=== PATIENT | male | born 1985 | race Caucasian/White ===

== ENCOUNTER 2016-05-22 12:39 | Emergency (ER) | payer SELFPAY | END 2016-05-22 15:21 | disposition home or self-care (01) | LOC: D.ER 12:39 | DX: S61.012A Laceration without foreign body of left thumb without damage to nail, initial encounter (principal); W45.8XXA Other foreign body or object entering through skin, initial encounter; Y93.89 Activity, other specified; Y92.019 Unspecified place in single-family (private) house as the place of occurrence of the external cause; F17.200 Nicotine dependence, unspecified, uncomplicated ==

== ENCOUNTER → 2017-12-10 08:33 | Outpatient (CLI) | payer BC | END | disposition home or self-care (01) | LOC: D.MRI 08:33 | DX: M54.6 Pain in thoracic spine (principal) ==

== ENCOUNTER 2018-10-14 07:35 | Emergency (ER) | payer BC, OTHER ==
[~2018-10-14] VITALS: Ht 175.3 cm; Wt 76.4 kg
[2018-10-14 07:38] VITALS: Ht 175.3 cm; Wt 76.4 kg
[2018-10-14] MEDS ORDERED: NAPROSYN500 MG PO (07:40)
[2018-10-14] MEDS ORDERED: LISINOPRIL10 MG PO (07:40)
[2018-10-14 08:15] LABS: BASOPHILS 0.3 % (0-2); EOSINOPHILS 3.1 % (0-7); HEMATOCRIT 39.8 % (42.0-54.0); IMMATURE GRANULOCYTES 0.3 % (0-5); LYMPHOCYTES 21.7 % (15-50); MCHC 35.2 g/dL (31.0-37.0); MCV 91.1 fL (80.0-100.0); MEAN PLATELET VOLUME 9.8 fL (7.4-10.4); MONOCYTES 6.7 % (2-11); NEUTROPHILS 67.9 % (40-80); PLATELET COUNT 256 10x3/uL (130-400); RBC 4.37 10x6/uL (4.20-6.10); RDW 12.9 % (11.5-14.5); WBC 9.3 10x3/uL (4.8-10.8)
[2018-10-14] MEDS ORDERED: HYDROCODONE-A1 UDTA2 PO (08:28)
[2018-10-14 08:33] LABS: ALBUMIN 3.5 g/dL (3.4-5.0); ALKALINE PHOSPHATASE 71 U/L (46-116); ALT (SGPT) 13 U/L (10-68); BILIRUBIN - TOTAL 0.21 mg/dL (0.2-1.3); CALC OSMOLALITY 281 mosm/kg (275-300); CALCIUM 8.7 mg/dL (8.5-10.1); CARBON DIOXIDE 25.9 mmol/L (21.0-32.0); CHLORIDE - SERUM 107 mmol/L (98-107); CREATININE - SERUM 0.9 mg/dL (0.6-1.3); GLUCOSE 96 mg/dL (74-106); POTASSIUM - SERUM 4.2 mmol/L (3.5-5.1); PROTEIN - SERUM 6.6 g/dL (6.4-8.2); SODIUM 142 mmol/L (136-145); UREA NITROGEN 11 mg/dL (7-18); eGFR NON AFRICAN AMERICAN > 90 mL/min (90-120)
[2018-10-14 08:34] LABS: INR 0.98 (0.85-1.17); PROTIME 12.5 SECONDS (11.6-15.0)
[2018-10-14 08:44] LABS: CKMB 0.7 U/L (0.0-3.6); CREATINE KINASE 101 UL (21-232); MAGNESIUM - SERUM 1.9 mg/dL (1.8-2.4); THYROID STIMULATING HORMONE 1.15 uIU/mL (0.36-3.74)
[2018-10-14 08:45] LABS: TROPONIN-I < 0.017 ng/mL (0.000-0.060)
[2018-10-14 09:03] LABS: APTT 30.8 SECONDS (22.8-39.4)
[2018-10-14 10:00] VITALS: BP 116/80
== END 2018-10-14 09:52 | disposition home or self-care (01) ==
LOC: D.ER 07:35
PROVIDERS: Emergency Medicine
DX: R00.1 Bradycardia, unspecified (principal); R42 Dizziness and giddiness; I10 Essential (primary) hypertension; F17.210 Nicotine dependence, cigarettes, uncomplicated

== ENCOUNTER → 2018-10-25 08:52 | Outpatient (CLI) | payer BC, OTHER ==
[2018-10-14 07:38] VITALS: BMI 24.8
[~2018-10-25 08:52] MED LIST: HYDROCODONE-A1 UDTA2 PO; LISINOPRIL10 MG PO; NAPROSYN500 MG PO
--- NOTE | 2018-10-28 08:42 | ST ---
PATIENT:CATIE HENLEY MEDICAL RECORD: [id number] SEX: M LOCATION:[facility] ORDER #: ADMISSION DATE: 10/25/18 AGE OF PATIENT: 32 REFERRING PHYSICIAN: INTERPRETING PHYSICIAN: HARRY ACEVEDO MD DATE OF SERVICE: 10/25/2018 PROCEDURE: Treadmill stress test. Baseline ECG is normal. DESCRIPTION OF PROCEDURE: Exercised for 6 minutes 54 seconds on Yang protocol. Maximum heart rate 110 beats per minute. No ECG changes of ischemia. No symptoms of ischemia. Normal blood pressure response to exercise. No arrhythmias noted. Poor exercise tolerance for age. IMPRESSION: Negative treadmill stress test with poor exercise tolerance. TRANSINT:[id number] Voice Confirmation ID: [id number] DOCUMENT ID: [id number] HARRY ACEVEDO MD at 0842 CC: [id number] DICTATION DATE: 10/26/18 1346 SNAKER TRACTOR DRIVER: 10/26/18 1353 DEP CLI 10/25/18 [place] [id number] [place] [address]
--- NOTE | 2018-10-28 08:42 | EC ---
PATIENT:CATIE HENLEY DATE OF SERVICE: 10/25/18 SEX: M MEDICAL RECORD: [id number] DATE OF : [birth year] [facility] AGE OF PATIENT: 32 ADMISSION DATE: 10/25/18 REFERRING PHYSICIAN: INTERPRETING PHYSICIAN: HARRY ACEVEDO MD ECHOCARDIOGRAM REPORT ECHO CHARGES 4 ECHO COMPLETE Date: 10/25/18 CLINICAL DIAGNOSIS: HEART MURMUR ECHOCARDIOGRAPHIC MEASUREMENTS (adult normal given) AC root (d.<3.7cm) 3.7 cm LV Septum d (<1.2 cm> 1.4 cm Valve Excursion 1.6 cm LV Septum (systole) 1.6 cm Left Atria (s.<4.0cm> 3.7 cm LVPW d(<1.2cm) 1.3 cm RV (d.<2.3cm) 4.5 cm LVPW (sytole) 1.5 cm LV diastole(<5.6CM) 5.3 cm MV E-F(>70mm/sec) cm LV systole 3.0 cm LVOT Diameter 1.9 cm MV exc.(>10mm) 1.8 cm Est.ejection fraction (50-75%) % DOPPLER: LVIT cm/sec A 50.0 cm/sec E 87.0 cm/sec LA cm/sec RVSP 27 mmHg LVOT 112 cm/sec AOP1/2T m/s Asc. Ao 144 cm/sec RVOT 65 cm/sec RA cm/sec PA 106 cm/sec AV Gradient Peak 8.24 mmHg AV Mean 4.66 mmHg AV Area 2.2 cm MV Gradient Peak 4.13 mmHg MV Mean 1.04 mmHg MV Area cm COMMENTS: Devil Tender: 2 GLORIA KINCAID Grinder Needle Tip: 3 Dr. Morse TAPE# PACS Pericardial Effusion N DATE OF SERVICE: 10/25/2018 Adequate 2D, color flow imaging, spectral Doppler, and M-Mode Mild LVH. LV internal dimension is normal. Wall motion is normal. EF is greater than or equal to 55%. Aortic valve is tricuspid. No evidence of stenosis by Doppler interrogation. Left atrium is normal. Mitral valve shows no prolapse. Trace MR. Right sided chambers are grossly normal. Trace TR. TRANSINT:[id number] Voice Confirmation ID: [id number] DOCUMENT ID: [id number] ECHOCARDIOGRAM REPORT [id number] CATIE HENLEY GREGORY A MD at 0842 CC: [id number] DICTATION DATE: 10/26/18 1222 CIGARETTE MAKING MACHINE OPERATOR: 10/26/18 1227 DEP CLI 10/25/18 [place] [id number] [place] [id number]
== END | disposition home or self-care (01) ==
LOC: D.HCCARDIO 08:30
PROVIDERS: ATTEND Internal Medicine Interventional Cardiology
DX: R01.1 Cardiac murmur, unspecified (principal); R07.9 Chest pain, unspecified